=== PATIENT | male | born 1940 | race Caucasian/White ===

== ENCOUNTER 2018-03-28 16:09 | Emergency (ER) | payer OTHER, BC ==
--- NOTE | 2018-03-28 16:14 | PDOC ---
Attending Attestation - Resident Resident Name: FarhatkelseyDarby - HPI HPI: 03/28/18 18:01 Pt presents to the ED complaining of a two week history of persistent cough productive of whitish sputum. Complains of subjective fevers at home. Denies shortness of breath. Denies smoking history. Has tried muccinex without relief. - Physicial Exam PE: 03/28/18 18:03 Agree with resident exam. Patient is alert and oriented and in no acute distress. speaking in complete sentences without respiratory distress. - Medical Decision Making 03/28/18 18:04 Pt presents to the ED with persistent cough. Labs and CXR are negative. Cough improved after neb in the ED. Given the low grade fever, the persistence of his cough and his age, will treat with z pack and instruct to follow up urgently with his PMD. Will also discharge with albuterol.
[2018-03-28 16:15] VITALS: BP 162/73; PULSE 98; BMI 25.5
[2018-03-28] MEDS ORDERED: ALBUTEROL SO4 2.5/IPRATROPIUM 0.5 INH SOL 3 ML VIAL.NEB. NEB ONE ×2 (16:27→16:46)
--- NOTE | 2018-03-28 16:34 | PDOC ---
History of Present Illness - General Chief Complaint: Respiratory Stated Complaint: COUGH Time Seen by Provider: 03/28/18 16:10 - History of Present Illness Initial Comments: Frank Johnson is a 77yo man with a PMH of pancreatic CA s/p resection who presents with cough for 2 weeks. The cough is worst at night but present throughout the day. He has been taking Musinex at home twice daily as well as using a Netipot 2-3 times per day without improvement. He states that after using the netipot, he coughs thick yellow mucus out of his throat. He denies any associated nasal congestion, sinus pressure, sore throat, rhinorrhea, or ear pain. He felt a little warm at home yesterday but has not checked his temperature. He has not taken any cough medicine nor anything for fever. He has not seen his regular physician regarding the cough. Mr Johnson reports that he is receiving some continuing treatment for his pancreatic cancer, but he is not sure what it is (though refers to it as chemo) . He also reports taking multiple medications at home, but he is not sure what they are either nor what they are for. He denies any significant smoking history and also denies any sick contacts. Past History - Past Medical History Allergies/Adverse Reactions: Allergies Allergy/AdvReac Type Severity Reaction Status Date / Time No Known Allergies Allergy Verified 03/28/18 16:10 Home Medications: Ambulatory Orders Albuterol Sulfate Inhaler - [Ventolin HFA Inhaler -] 1 - 2 inh PO Q4H #1 inhaler 03/28/18 Atorvastatin Ca [Lipitor] 40 mg PO HS 03/28/18 Azithromycin 500 mg PO DAILY 5 Days #5 tablet 03/28/18 Benzonatate [Tessalon Pearls -] 100 mg PO TID #21 capsule 03/28/18 Diazepam [Valium] 5 mg PO Q4H 03/28/18 Fenofibrate 160 mg PO DAILY 03/28/18 Irbesartan 150 mg PO DAILY 03/28/18 Metformin HCl [Metformin HCl ER] 1,000 mg PO BID 03/28/18 Ondansetron HCl [Zofran] 8 mg PO Q8H PRN 03/28/18 Pioglitazone HCl [Actos] 15 mg PO DAILY 03/28/18 Zolpidem Tartrate [Ambien] 10 mg PO HS 03/28/18 Cancer: Yes (PANCREATIC) COPD: No - Surgical History Abdominal Surgery: Yes (PANCREATIC MASS) - Suicide/Smoking/Psychosocial Hx Smoking History: Former smoker Have you smoked in the past 12 months: No Information on smoking cessation initiated: No Review of Systems - Review of Systems Comments:: General: No fevers, no chills, no weight or appetite change, no malaise HEENT: No changes in vision, no changes in hearing, no congestion, no sore throat CV: No chest pain, no palpitations, no LE edema Pulm: No SOB, no wheezing. +Cough GI: No nausea or vomiting, no change in bowel habits, no melena : No frequency, no urgency, no dysuria Musc: No back pain, no joint swelling, no recent injury Skin: No rash, no lesions, no erythema Endo: No excessive thirst, no heat/cold intolerance Heme: No unusual bruising or bleeding, no swollen glands Neuro: No syncope, no numbness/tingling, no focal weakness Vasc: No claudication Psych: No recent change in mood, no SI or HI *Physical Exam - Vital Signs Last Vital Signs Temp Pulse Resp BP Pulse Ox 100.1 F H 98 H 20 162/73 100 03/28/18 16:09 03/28/18 16:09 03/28/18 16:09 03/28/18 16:09 03/28/18 16:09 - Physical Exam Comments: General: Comfortable, no acute distress HEENT: PERRL, EOMI, MMM, voice normal, normal neck ROM, no LAD Cards: RRR, no murmur appreciated Pulm: Comfortable on room air, clear to auscultation bilaterally. Frequent dry cough. Abd: Soft, nontender, nondistended. : No CVA tenderness Ext: Atraumatic. No LE edema. ROM intact. Strength 5/5 and equal bilaterally Vasc: Extremities WWP. Palpable radial and pedal pulses bilaterally Skin: Normal color, no rashes or lesions Neuro: A&Ox3, CN grossly intact, normal speech, motor/sensory grossly intact and symmetric Psych: Mood appropriate to situation ED Treatment Course - LABORATORY CBC & Chemistry Diagram: 03/28/18 16:40 03/28/18 16:40 - RADIOLOGY Radiology Studies Ordered: Category Date Time Status CHEST X-RAY PORTABLE* [RAD] Stat Radiology 03/28/18 16:27 Ordered Medical Decision Making - Medical Decision Making 03/28/18 16:39 Frank Johnson is a 77yo man with a PMH of pancreatic cancer who presents with a cough for two weeks and report of thick, yellow mucus after using a netipot. - Most likely viral respiratory infection, but given length of illness need to consider possible pneumonia. Reports the drainage of thick mucus into his throat after using a netipot as well as worsened cough overnight; could possibly indicate a sinus infection. - Received the flu shot, but will check for flu - CXR to evaluate for focal lung pathology - May be on chemotherapy, which would likely lower his immune response, and temp 100.1 could indicate a more significant infection. - CBC with diff, CMP, CXR, flu swab. As cough is worse at night, will also check BNP to make sure he does not have undiagnosed fluid overload. - Duoneb for cough 03/28/18 17:46 - Labs and CXR reviewed. - Labs notable for WBC 9.9, Na 131 - CXR with possible LLL pneumonia. Radiology read pending - Acetaminophen for pain - Cough improved following nebulizer treatment - Results reviewed with Mr Johnson. Eager to be discharged home given likely pneumonia. Will discharge with azithromycin, albuterol inhaler, tessalon perles for cough. Discussed close follow up with his PMD and return precautions. - Will discharge home. Mr Johnson will need to be called if his flu swab is positive. He understands and agrees with the plan to discharge home. Discussed with Dr Huynh. Darby Gaxiola PGY1 *DC/Admit/Observation/Transfer Diagnosis at time of Disposition: Cough - Discharge Dispostion Disposition: HOME Condition at time of disposition: Stable Decision to Admit order: No - Prescriptions Prescriptions: Albuterol Sulfate Inhaler - [Ventolin HFA Inhaler -] 1 - 2 inh PO Q4H #1 inhaler Azithromycin 500 mg PO DAILY 5 Days #5 tablet Benzonatate [Tessalon Pearls -] 100 mg PO TID #21 capsule - Referrals Referrals: Aldo Dang MD [Primary Care Provider] - - Patient Instructions Printed Discharge Instructions: DI for Pneumonia -- Adult Additional Instructions: Discharge Instructions: - You were seen in the ED for a cough - You had blood tests and a chest xray. These suggested an early left lower lung pneumonia - Please take your prescriptions as directed: - Tesslon perle (for cough) 3 times per day - as needed - Albuterol inhaler (for cough and shortness of breath) up to every 4 hours - as needed - Azithromycin (antibiotic) once daily until gone - You may use acetaminophen (Tylenol) or ibuprofen (Motrin, Advil) for pain/ discomfort or fever - Make an appointment to follow up with your regular doctor within the next 2-3 days - Seek immediate medical attention if you have worsening symptoms, chest pain, shortness of breath, or any other medical emergency - Post Discharge Activity
[2018-03-28 17:06] LABS: HEMATOCRIT 31.2 % (35.4-49); HEMOGLOBIN 10.5 GM/dl (11.7-16.9); MCH 29.7 pg (25.7-33.7); MCHC 33.6 g/dl (32.0-35.9); MEAN CELL VOLUME 88.4 fl (80-96); MEAN PLT VOLUME 8.9 fl (7.5-11.1); PLATELET COUNT 156 K/MM3 (134-434); RBC 3.53 M/mm3 (4.00-5.60); WHITE BLOOD COUNT 9.9 K/mm3 (4.0-10.8)
[2018-03-28 17:09] LABS: ALBUMIN 3.7 g/dl (3.5-5.0); ALK PHOS 66 U/L (32-92); ANION GAP 5 MMOL/L (8-16); BLOOD UREA NITROGEN 28 mg/dl (7-18); CALCIUM 9.2 mg/dl (8.4-10.2); CHLORIDE 102 mmol/L (98-107); CO2 24 mmol/L (22-28); CREATININE 0.9 mg/dl (0.6-1.3); GLUCOSE,RANDOM 254 mg/dl (74-106); POTASSIUM 4.1 mmol/L (3.5-5.1); SGOT/AST 29 U/L (10-42); SGPT/ALT 27 U/L (10-40); SODIUM 131 mmol/L (136-145); TOT PROT 7.1 g/dl (6.4-8.3)
[2018-03-28 17:10] LABS: BILIRUBIN,TOTAL < 0.3 mg/dl (0.2-1.0)
[2018-03-28] MEDS ORDERED: ACETAMINOPHEN 500 MG TABLET (FP) PO ONE (17:11)
[2018-03-28] MEDS ORDERED: ACETAMINOPHEN 500 MG TABLET (FP) ONE (17:12)
[2018-03-28 17:52] VITALS: TEMP 99
[2018-03-28 18:06] LABS: ANISOCYTOSIS 1+
[2018-03-28 18:07] LABS: PLATELET ESTIMATE ADEQUATE; TARGET CELLS OCCASIONAL
[2018-03-28 18:59] LABS: N-TERMINAL BNP 323.5 pg/ml (5-450)
== END 2018-03-28 17:55 | disposition home or self-care (01) ==
LOC: FER 16:09
PROC: 3E0F7GC Introduction of Other Therapeutic Substance into Respiratory Tract, Via Natural or Artificial Opening (ICD-10-PCS; principal; 2018-03-28)
DX: R05 Cough (principal); Z85.07 Personal history of malignant neoplasm of pancreas
CPT/HCPCS: 36415; 71045-TC-FY; 80053; 83880; 85025; 87804; 99283-25